=== PATIENT | male | born 1955 | race African-American/Black ===

== ENCOUNTER 2019-04-02 12:31 | Emergency (ER) | payer BC ==
[~2019-04-02] VITALS: Ht 182.9 cm; Wt 133.8 kg
[2019-04-02] MEDS ORDERED: BACTRIM DS TAB1 EACH PO (13:00)
[2019-04-02] MEDS ORDERED: KEFLEX500 MG PO (13:00)
== END 2019-04-02 13:05 | disposition home or self-care (01) ==
LOC: ER 12:31
DX: T25.231A Burn of second degree of right toe(s) (nail), initial encounter (principal); X12.XXXA Contact with other hot fluids, initial encounter; Y92.008 Other place in unspecified non-institutional (private) residence as the place of occurrence of the external cause; E11.9 Type 2 diabetes mellitus without complications
CPT/HCPCS: 99283